=== PATIENT | female | born 1950 | race Caucasian/White ===

== ENCOUNTER 2020-10-16 14:39 | Emergency (ER) | payer MEDICARE, MEDICAID ==
[~2020-10-16] VITALS: Ht 170.2 cm; Wt 66.2 kg
[~2020-10-16 14:39] MED LIST: ACID1TAB7 PO; CLIN300C9 PO
--- NOTE | 2020-10-16 14:53 | NUR ---
BIB [facility]. PT C/O CHILLS, PRODUCTIVE COUGH, SOB X1 WEEK. P 3 ARMAMENT/ORDNANCE IMA TECHNICIAN [facility]: OXYGEN 87% RA, FSBG 112 PT OXYGEN 94% RA WHILE TALKING, OXYGEN DOWN TO 87% RA WHILE RESTING. PT CONTINUES ON 2L OXYGEN VIA NC. OXYGEN 97%. RESP NOW 20. PT CONNECTED TO ALL MONITORING. CALL LIGHT IN REACH.
[2020-10-16] MEDS ORDERED: ACETAMINOPHEN 500 MG TABLET ONE (15:57)
[2020-10-16] MEDS ORDERED: ACETAMINOPHEN 500 MG TABLET PO ONE (16:00)
[2020-10-16] MEDS ORDERED: SODIUM CHLORIDE 0.9% 1,000ML IVBOLUS ONE (16:00)
[2020-10-16] MEDS ORDERED: SODIUM CHLORIDE FLUSH 10ML SYR IVF ONE (16:00)
--- NOTE | 2020-10-16 16:04 | NUR ---
PIV PLACED BY TASK RN. IVF RUNNING. PRICING ASSOCIATE PER MAY. LAB AT BEDSIDE.
[2020-10-16 16:41] LABS: BASOPHILS % (AUTO) 1 % (0-1); EOSINOPHILS % (AUTO) 0 % (1-7); LYMPHOCYTES % (AUTO) 16 % (22-44); MEAN CORPUSCULAR HEMOGLOBIN 29.6 pg (27.0-34.8); MEAN CORPUSCULAR HGB CONC 34.1 g/dL (32.4-35.8); MEAN PLATELET VOLUME 11.2 fL (7.4-10.4); MONOCYTES % (AUTO) 12 % (2-9); NEUTROPHILS % (AUTO) 71 % (42-75); PLATELET COUNT 82 x10^3/uL (130-400); RED BLOOD COUNT 5.07 x10^6/uL (3.82-5.3); RED CELL DISTRIBUTION WIDTH 12.3 % (9.6-15.2)
[2020-10-16 16:47] LABS: ALBUMIN 3.2 g/dL (3.4-5.0); ANION GAP 6 mmol/L (5-15); CALCIUM 8.4 mg/dL (8.5-10.1); CHLORIDE 103 mmol/L (98-107)
--- NOTE | 2020-10-16 16:51 | NUR ---
PT OXYGEN LEVEL FLUCTUATED FROM 89-93% ON ROOM AIR, EVEN AFTER TRANSFERRING TO BEDSIDE COMMODE WITHOUT OXYGEN. ERMD NOTIFIED.
[2020-10-16 17:13] LABS: MICROSCOPIC INDICATED
[2020-10-16 18:16] VITALS: BP 122/75
--- NOTE | 2020-10-16 18:17 | NUR ---
IV ABX STARTED PER MAY. 2 SETS BLOOD CX COLLECTED PRIOR TO ADMIN.
[2020-10-16] MEDS ORDERED: CEFTRIAXONE 1,000 MG in DEXTROSE 5% 50 ML IVPB ONE (18:30)
--- NOTE | 2020-10-16 18:41 | NUR ---
IV ABX COMPLETED. CHART UP FOR RECHECK.
--- NOTE | 2020-10-16 18:59 | NUR ---
Report from Rekha MARIE
== END 2020-10-16 19:32 | disposition home or self-care (01) ==
LOC: ED 19:00
DX: U07.1 COVID-19 (principal); I10 Essential (primary) hypertension; J44.9 Chronic obstructive pulmonary disease, unspecified
CPT/HCPCS: 36415; 71045; 80048; 81001; 82040; 83605; 84145; 85025; 87040; 87086; 96361; 96365; 99284; J0696; J7030; U0003; U0005